=== PATIENT | male | born 1970 | race Caucasian/White ===

== ENCOUNTER 2018-06-20 22:06 | Emergency (ER) | payer BC ==
[2018-06-20 22:49] VITALS: BP 158/93
[2018-06-20] MEDS ORDERED: KETOROLAC TROMETHAMINE 60 MG/2 ML SDV IM ONE (23:02)
[2018-06-20] MEDS ORDERED: OXYCODONE-ACETAMINOPHEN 5-325 MG TABLET PO ONE (23:02)
[2018-06-20] MEDS ORDERED: ONDANSETRON 4 MG TAB.RAPDIS PO ONE (23:02)
--- NOTE | 2018-06-20 23:17 | ER Document Report ---
ED Medical Screen (RME) - General Chief Complaint: Flank Pain Stated Complaint: RIGHT LOWER BACK PAIN Time Seen by Provider: 06/20/18 23:02 Notes: 47-year-old male with chief complaint of severe pain in his right flank radiating around to his right abdomen. Reports nausea but denies vomiting. Denies fever. Denies injury. Denies history of kidney stones. Denies any past medical history except hypertension. TRAVEL OUTSIDE OF THE [place] IN LAST 30 DAYS: No Physical Exam - Vital signs Vitals: Temp Pulse Resp BP Pulse Ox 97.2 F 68 18 158/93 H 96 06/20/18 22:48 06/20/18 22:48 06/20/18 22:48 06/20/18 22:48 06/20/18 22:48 - General General appearance: Anxious In distress: Moderate - Abdominal Tenderness: Tender - Generalized, worse on the right Course - Re-evaluation Re-evalutation: Patient is not very obvious discomfort, cannot sit properly, holding his right side. Never had a kidney stone in the past, as result this was discussed and decision was made to proceed with CAT scan imaging for first-time stone which is suspected. I have greeted and performed a rapid initial assessment of this patient. A comprehensive ED assessment and evaluation of the patient, analysis of test results and completion of the medical decision making process will be conducted by additional ED providers. - Vital Signs Vital signs: Temp Pulse Resp BP Pulse Ox 97.2 F 68 18 158/93 H 96 06/20/18 22:48 06/20/18 22:48 06/20/18 22:48 06/20/18 22:48 06/20/18 22:48
[2018-06-20 23:37] LABS: ABSOLUTE BASOPHILS # (AUTO) 0.1 10^3/uL (0.0-0.2); ABSOLUTE EOSINOPHILS # (AUTO) 0.2 10^3/uL (0.0-0.6); ABSOLUTE LYMPHOCYTES (AUTO) 1.4 10^3/uL (0.5-4.7); ABSOLUTE MONOCYTES (AUTO) 0.5 10^3/uL (0.1-1.4); ABSOLUTE NEUT (AUTO) 5.7 10^3/uL (1.7-8.2); BASOPHILS % (AUTO) 1.8 % (0-2); HEMATOCRIT 44.5 % (37.9-51.0); HEMOGLOBIN 15.6 g/dL (13.5-17.0); LYMPHOCYTES % (AUTO) 17.5 % (13-45); MEAN CORPUSCULAR HEMOGLOBIN 29.8 pg (27.0-33.4); MEAN CORPUSCULAR HGB CONC 35.1 g/dL (32.0-36.0); MEAN CORPUSCULAR VOLUME 85 fl (80-97); MONOCYTES % (AUTO) 5.9 % (3-13); PLATELET COUNT 189 10^3/uL (150-450); RED BLOOD COUNT 5.25 10^6/uL (4.35-5.55); RED CELL DISTRIBUTION WIDTH 13.1 % (11.5-14.0); SEGMENTED NEUTROPHILS % (AUTO) 72.8 % (42-78); TOTAL CELLS COUNTED % (AUTO) 100 %; WHITE BLOOD COUNT 7.9 10^3/uL (4.0-10.5)
[2018-06-20 23:39] LABS: APPEARANCE,URINE CLEAR; BILIRUBIN,URINE NEGATIVE (NEGATIVE); COLOR,URINE STRAW; GLUCOSE, URINE >=500 mg/dL (NEGATIVE); KETONES,URINE NEGATIVE (NEGATIVE); LEUKOCYTE ESTERASE,URINE NEGATIVE (NEGATIVE); NITRITE,URINE NEGATIVE (NEGATIVE); PROTEIN,URINE NEGATIVE (NEGATIVE); URINE SPECIFIC GRAVITY 1.012; UROBILINOGEN,URINE NEGATIVE mg/dL (<2.0)
[2018-06-20 23:51] LABS: ALANINE AMINOTRANSFERASE 49 U/L (21-72); ALBUMIN 4.3 g/dL (3.5-5.0); ALKALINE PHOSPHATASE 79 U/L (38-126); ANION GAP 11 (5-19); ASPARTATE AMINO TRANSFERASE 33 U/L (17-59); BILIRUBIN,DIRECT 0.3 mg/dL (0.0-0.4); BILIRUBIN,TOTAL 0.5 mg/dL (0.2-1.3); BLOOD UREA NITROGEN 17 mg/dL (7-20); CALCIUM 9.3 mg/dL (8.4-10.2); CARBON DIOXIDE 25 mmol/L (22-30); CHLORIDE 106 mmol/L (98-107); GLUCOSE 221 mg/dL (75-110); POTASSIUM 4.3 mmol/L (3.6-5.0); SODIUM 141.6 mmol/L (137-145); TOTAL PROTEIN 7.4 g/dL (6.3-8.2)
--- NOTE | 2018-06-21 00:10 | RADIOLOGY REPORT (SQ) ---
EXAM DESCRIPTION: CT ABDOMEN PELVIS WITHOUT IV CONTRAST COMPLETED DATE/TME: 06/20/2018 23:02 CLINICAL HISTORY: 47 years, Male, right flank and abd pain Comparison: None TECHNIQUE: Contiguous axial CT images of the abdomen and pelvis were obtained. Sagittal and coronal reformats were reviewed. This exam was performed according to our departmental dose-optimization program, which includes automated exposure control, adjustment of the mA and/or kV according to patient size and/or use of iterative reconstruction technique. FINDINGS: Lung bases: Clear. Liver:Unremarkable. No focal liver lesion. Gallbladder:Unremarkable. No gallstones. No gallbladder wall thickening or pericholecystic fluid. Spleen:Unremarkable Pancreas: Pancreas is unremarkable. Adrenal glands:Within normal limits. Kidneys/ureters: Mild right hydronephrosis and hydroureter. Perinephric and periureteral inflammatory stranding on the right due to a 2 mm calculus in the distal ureter just proximal to the ureterovesical junction. No hydronephrosis or nephrolithiasis on the left.. Stomach/small bowel/colon: Stomach is unremarkable. Small bowel is unremarkable. Colon is unremarkable. Appendix: No evidence of appendicitis. Peritoneum: Umbilical Vascular structures: within normal limits Lymph nodes: No abnormal lymph nodes. Bladder:Unremarkable. Pelvic organs: No acute abnormality Bones: No acute osseous abnormality. Soft tissues: Unremarkable.. IMPRESSION: Obstructive distal right ureteral calculus measuring approximately 2 mm.
[2018-06-21] MEDS ORDERED: HYDROCODONE/ACETAMINOPHEN 5-325 MG (6 TAB/ER DISP) PO PRN (01:49)
[2018-06-21] MEDS ORDERED: ONDANSETRON ODT 4 MG TAB (6 TAB/ER DISP) PO PRN (01:49)
--- NOTE | 2018-06-21 01:49 | ER Document Report ---
ED GI/ - General Chief Complaint: Flank Pain Stated Complaint: RIGHT LOWER BACK PAIN Time Seen by Provider: 06/20/18 23:02 Notes: Patient is a 47-year-old male that comes to the emergency department with chief complaint of severe pain in his right flank radiating around to his right abdomen. Reports nausea but denies vomiting. Denies fever. Denies injury. Denies history of kidney stones. Denies any past medical history except hypertension. TRAVEL OUTSIDE OF THE [place] IN LAST 30 DAYS: No Past Medical History - General Information source: Patient - Social History Smoking Status: Never Smoker Chew tobacco use (# tins/day): No Frequency of alcohol use: None Drug Abuse: None Lives with: Family Family History: Reviewed & Not Pertinent Patient has suicidal ideation: No Patient has homicidal ideation: No - Past Medical History Cardiac Medical History: Reports: Hx Hypertension Renal/ Medical History: Denies: Hx Peritoneal Dialysis - Immunizations Immunizations up to date: Yes Hx Diphtheria, Pertussis, Tetanus Vaccination: Yes Review of Systems - Review of Systems Constitutional: No symptoms reported EENT: No symptoms reported Cardiovascular: No symptoms reported Respiratory: No symptoms reported Gastrointestinal: See HPI Genitourinary: See HPI Male Genitourinary: No symptoms reported Musculoskeletal: No symptoms reported Skin: No symptoms reported Hematologic/Lymphatic: No symptoms reported Neurological/Psychological: No symptoms reported Physical Exam - Vital signs Vitals: Temp Pulse Resp BP Pulse Ox 97.2 F 68 18 158/93 H 96 06/20/18 22:48 06/20/18 22:48 06/20/18 22:48 06/20/18 22:48 06/20/18 22:48 - Notes Notes: GENERAL: Patient rolled onto his left side, holding his right side, appears to be in pain HEAD: Normocephalic, atraumatic. EYES: Pupils equal, round, and reactive to light. Extraocular movements intact. ENT: Oral mucosa moist, tongue midline. Oropharynx unremarkable. Airway patent. Nares patent, no nasal septal hematoma, TM's intact. NECK: Full range of motion. Supple. Trachea midline. LUNGS: Clear to auscultation bilaterally, no wheezes, rales, or rhonchi. No respiratory distress. HEART: Regular rate and rhythm. No murmur ABDOMEN: Tender in the mid right abdomen, no guarding, remaining abdomen benign GENITOURINARY: Deferred EXTREMITIES: Moves all 4 extremities spontaneously. No edema, normal radial and dorsalis pedis pulses bilaterally. No cyanosis. BACK: no cervical, thoracic, lumbar midline tenderness. No saddle anesthesia, normal distal neurovascular exam. Positive right-sided CVA tenderness NEUROLOGICAL: Alert and oriented x3. Normal speech. [cranial nerves II through XII grossly intact]. PSYCH: Normal affect, normal mood. SKIN: Warm, dry, normal turgor. No rashes or lesions noted. Course - Re-evaluation Re-evalutation: 06/21/18 01:40 Patient reevaluated, he is much more comfortable. CBC, chemistry, urinalysis are unremarkable except for hyperglycemia. CAT scan does show 2 mm passing kidney stone, no other concerning findings. Patient does not have a fever, vital signs are unremarkable. I discussed the details of this with patient and , patient will be provided with symptom management, discussed return precautions in detail. I instructed patient to follow-up with primary care to have recheck of glucose for possible type 2 diabetes management. Patient states satisfaction and agreement with plan. - Vital Signs Vital signs: Temp Pulse Resp BP Pulse Ox 97.4 F 72 22 H 158/93 H 98 06/21/18 01:25 06/21/18 01:25 06/21/18 01:25 06/20/18 22:48 06/21/18 01:25 - Laboratory Result Diagrams: 06/20/18 23:20 06/20/18 23:20 Laboratory results interpreted by me: 06/20/18 06/20/18 23:20 23:20 Glucose 221 H Urine Glucose (UA) >=500 H Discharge - Discharge Clinical Impression: Ureterolithiasis Condition: Stable Disposition: HOME, SELF-CARE Additional Instructions: Your workup shows a 2 mm kidney stone which were passing on the right side. This should pass on its own. Take the pain medication as prescribed if needed, take the nausea medication as prescribed, the naproxen can help reduce spasm as well. Follow-up with primary care, have your blood glucose rechecked. Follow-up with urology in regards to the stone, see listed details below. Return if you worsen including vomiting, severe worsening pain, fever, or any other concerning symptoms. [facility] [address] [place] [id number] [facility] [address] [phone] Zoey Olivia MD Doctor in [place], [place] Address: [address] [place] [address] Prescriptions: Morphine Sulfate [Morphine Ir 15 Mg Tablet] 15 mg PO TID PRN #12 tablet PRN Reason: Naproxen 500 mg PO BID PRN #14 tablet PRN Reason: Ondansetron [Zofran Odt 4 mg Tablet] 1 - 2 tab PO Q4H PRN #20 tab.rapdis PRN Reason: For Nausea/Vomiting Forms: Return to Work
[2018-06-21] MEDS ORDERED: MORPHINE SULFATE 10 MG/ML INJ IM ONE (01:55)
== END 2018-06-21 02:46 | disposition home or self-care (01) ==
LOC: ER 22:06
DX: N13.2 Hydronephrosis with renal and ureteral calculous obstruction (principal); R73.9 Hyperglycemia, unspecified; R10.9 Unspecified abdominal pain; R11.0 Nausea; I10 Essential (primary) hypertension
CPT/HCPCS: 99284; 96372; 36415; 85025; 80053; 81001; 74176; J1885; S0119; J2270